=== PATIENT | female | born 1970 | race Caucasian/White ===

== ENCOUNTER 2017-03-11 20:17 | Emergency (ER) | payer MEDICAID, OTHER ==
[~2017-03-11 20:17] MED LIST: ECOT81TA2 PO; GLUCOMETER XX; GLUCOMTESTSTRIPS XX; METF500 PO; TOPI25 PO; Z.0.LANCETS XX
[2017-03-11 20:18] VITALS: BP 204/96; PULSE 84; RESP 18; TEMP 97.6; O2SAT 96
--- NOTE | 2017-03-11 21:02 | PD ---
Physical Exam Date Seen by Provider: Mar 11, 2017 Time Seen by Provider: 21:00 Data Data Last Documented VS Vital Signs Date Time Temp Pulse Resp B/P Pulse Ox O2 Delivery O2 Flow Rate FiO2 03/11/17 20:18 97.6 84 18 204/96 96 Room Air MDM Supervised Visit with GUERO: No Narrative Course 46 YO female with PMH of DM with complaint of 1 week history pruritic rash "all over" the body. Treated with calamine lotion with no improvement. Denies fevers. Denies sick contacts. Vitals reviewed. Awaiting bed placement. Debbie Davila Mar 11, 2017 21:02
[2017-03-11] MEDS ORDERED: ASPI81CH37 CHEW (22:20)
[2017-03-11] MEDS ORDERED: METF500T PO (22:20)
[2017-03-11 22:22] VITALS: BP 162/101; PULSE 70; RESP 16; TEMP 98.3; O2SAT 98
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
[2017-03-11] MEDS ORDERED: diphenhydrAMINE HCL 50 MG CAP PO ONE (22:45)
[2017-03-11 23:27] VITALS: BP 131/63; PULSE 69; RESP 14; TEMP 97.6; O2SAT 99
== END 2017-03-11 23:31 | disposition home or self-care (01) ==
LOC: NEPC 20:17
DX: L50.9 Urticaria, unspecified (principal); E11.9 Type 2 diabetes mellitus without complications; Z79.84 Long term (current) use of oral hypoglycemic drugs
CPT/HCPCS: 99283; Q0163